=== PATIENT | male | born 1965 | race Caucasian/White ===

== ENCOUNTER 2018-07-12 12:47 | Emergency (ER) | payer OTHER, MEDICAID, SELFPAY ==
[2018-07-12 12:51] VITALS: BP 132/84; PULSE 72; RESP 14; TEMP 36.9; O2SAT 98
--- NOTE | 2018-07-12 13:04 | ED.NAVMDI ---
HPI - Nausea/Vomiting/Diarrhea General Chief complaint: Nausea/Vomiting/Diarrhea Stated complaint: fever,throwing up after surgery Time Seen by Provider: 07/12/18 13:03 Source: patient Mode of arrival: ambulatory Limitations: no limitations History of Present Illness HPI Narrative: Patient is a 53 old male who underwent a left shoulder rotator cuff repair earlier this week. Patient states that he has had pain in the left shoulder after the local nerve block wore off. He states that this morning he started to have nausea vomiting. Was unable to take his pain medication this morning. Has a burning in his epigastric area. No chest pain. No fevers. No problems breathing. Has not tried anything for this prior to arrival. Related Data Previous Rx's Medication Instructions Recorded ondansetron HCl [Zofran] 4 mg PO Q6-8H PRN #14 tab 07/12/18 Allergies Allergy/AdvReac Type Severity Reaction Status Date / Time aripiprazole [From Abilify] Allergy Unknown Verified 07/12/18 12:55 Penicillins [PENICILLINS] Allergy Unknown Verified 07/12/18 13:45 risperidone [From Risperdal] Allergy Unknown Verified 07/12/18 12:55 Review of Systems Constitutional Denies fatigue, Denies fever(s) and Denies headache(s) ENT Ears, Nose, Mouth, and Throat: Denies dizziness and Denies headache(s) Cardiovascular Denies chest pain, Denies palpitations and Denies dyspnea Respiratory Denies cough and Denies dyspnea Gastrointestinal Gastrointestinal: Reports abdominal pain, Reports constipation, Denies diarrhea, Reports nausea and Reports vomiting Genitourinary Denies dysuria Musculoskeletal Reports arthralgias (Left shoulder) Integumentary/Breasts Denies lesions and Denies rash Neurologic Denies dizziness and Denies headache(s) Endocrine Denies fatigue and Denies palpitations Hematologic/Lymphatic Denies easy bleeding and Denies easy bruising PFSH Medical History Hypertension (Acute) Surgical History S/P arthroscopy of left shoulder (Acute) Social History Smoking Status: Never smoker Exam Initial Vital Signs Initial Vital Signs: Vital Signs Temperature 98.4 F 07/12/18 12:51 Pulse Rate 72 07/12/18 12:51 Respiratory Rate 14 07/12/18 12:51 Blood Pressure 132/84 07/12/18 12:51 Pulse Oximetry 98 07/12/18 12:51 Const General: cooperative, healthy appearing, well developed, well groomed and No acute distress Orientation: alert, awake and oriented x3 HENMT Head: normal to inspection and normocephalic Resp Effort & Inspection: normal respiratory effort Auscultation: clear to auscultation bilaterally Cardio Rate: regular rate Rhythm: regular rhythm GI Inspection: non-distended Palpation: soft, No firm and No tender Skin Lesions: no lesions Rashes: no rashes Neuro General: alert, awake and oriented x3 Extrem General: capillary refill normal Other: Left arm with surgical bandages in place and a sling Psych Appearance: grossly normal and well kempt Course Orders Ordered: ED Orders 07/12/18 13:25 Complete Blood Count AUTO DIFF Stat Comprehensive Metabolic Panel Stat Lipase Stat Partial Thromboplastin Time Stat Prothrombin Time INR Stat Discontinued Medications Al Hydrox/Mg Hydrox/Simethicone 20 ml/ Lidocaine HCl 15 ml 0 ml PO NOW ONE Stop: 07/12/18 14:36 Last Admin: 07/12/18 14:57 Dose: 35 ml Sodium Chloride (Normal Saline 0.9%) 1,000 mls @ 1,000 mls/hr IV BOLUS ONE Stop: 07/12/18 14:32 Last Infusion: 07/12/18 14:53 Dose: 0 mls/hr Admin: 07/12/18 13:34 Dose: 1,000 mls/hr Sodium Chloride (Normal Saline 0.9%) 1,000 mls @ 1,000 mls/hr IV BOLUS ONE Stop: 07/12/18 16:35 Last Admin: 07/12/18 15:52 Dose: 1,000 mls/hr Metoclopramide HCl (Reglan) 10 mg IV NOW ONE Stop: 07/12/18 13:43 Last Admin: 07/12/18 13:58 Dose: 10 mg Morphine Sulfate (Morphine) 4 mg IV NOW ONE Stop: 07/12/18 13:43 Last Admin: 07/12/18 13:58 Dose: 4 mg Ondansetron HCl (Zofran) 4 mg IV NOW ONE Stop: 07/12/18 12:59 Last Admin: 07/12/18 13:28 Dose: 4 mg Ondansetron HCl (Zofran) 4 mg IV NOW ONE Stop: 07/12/18 15:37 Last Admin: 07/12/18 15:50 Dose: 4 mg Ondansetron HCl (Zofran Odt Prepack) 1 bottle MISC SEEINSTR ONE Stop: 07/12/18 16:41 Vital Signs - 8 hr 07/12/18 12:51 07/12/18 14:20 07/12/18 15:05 Temperature 98.4 F Pulse Rate 72 75 70 Respiratory Rate 14 18 16 Blood Pressure 132/84 Blood Pressure [Right Arm] 142/93 H 130/80 Pulse Oximetry 98 99 96 07/12/18 16:26 Temperature Pulse Rate Respiratory Rate 18 Blood Pressure Blood Pressure [Right Arm] 117/78 Pulse Oximetry MDM - Nausea/Vomiting/Diarrhea Lab Data Attestation: I reviewed the patient's lab results. Result diagrams: 07/12/18 13:25 07/12/18 13:25 Lab Results 07/12/18 07/12/18 07/12/18 Range/Units 13:25 13:25 13:25 WBC 11.5 H (4.5-11.0) X10^3/uL RBC 4.28 L (4.5-5.9) X10^6/uL Hgb 13.3 L (13.5-17.5) g/dL Hct 39.7 L (41-53) % MCV 92.7 (80-100) fL MCH 31.1 (26-34) PG MCHC 33.6 (30-36) % RDW 13.1 (11.6-14.8) % Plt Count 254 (150-400) X10^3/uL Neut % (Auto) 76.2 H (50-75) % Lymph % (Auto) 14.7 L (25-40) % [place] % (Auto) 7.6 (3-14) % Eos % (Auto) 1.0 L (2-4) % Baso % (Auto) 0.5 (0-2) % Neut # (Auto) 8700 H (5054-2840) /uL PT 10.9 (10.1-12.7) SECONDS INR 1.0 (0.9-1.3) APTT 25 L (26.4-36.2) SECONDS Sodium 141 (137-145) mmol/L Potassium 3.6 (3.4-5.1) mmol/L Chloride 102 (98-107) mmol/L Carbon Dioxide 27 (22-32) mmol/L BUN 13 (9-20) mg/dL Creatinine 0.80 (0.66-1.25) mg/dL Estimated GFR > 60.0 (>60) mL/min BUN/Creatinine Ratio 16.3 (6-22) Glucose 142 H (70-100) mg/dL Calcium 8.8 (8.4-10.2) mg/dL Total Bilirubin 0.3 (0.2-1.3) mg/dL AST 32 (17-59) IU/L ALT 30 (21-72) IU/L Alkaline Phosphatase 46 (38-126) U/L Total Protein 6.9 (6.3-8.2) g/dL Albumin 4.2 (3.5-5.0) g/dL Globulin 2.7 (1.7-4.1) g/dL Albumin/Globulin Ratio 1.6 (1.0-2.8) Lipase 152 (23-300) U/L MDM Narrative Medical decision making narrative: Patient reports improvement of his epigastric pain after GI cocktail. He did vomit here in the emergency department after that. He received 2 L of fluids and then was able to tolerate oral intake without vomiting. Patient also has not had a bowel movement in 3 days. We did discuss the importance of staying hydrated with small amounts of fluid over longer periods of time and also the fact that he could use [id number] laxative for his symptoms. Sent home with a prescription for nausea medication. He does not seem to have this medication after his surgery. He was given return precautions. He expressed understanding and agreement with plan. Discharge Plan Departure Patient Disposition: Home Clinical Impression: Nausea & vomiting, Acute epigastric pain Instructions: Nausea and Vomiting-Adult Activity Restrictions/Additional Instructions: Recommend you continue all of your postoperative instructions given to you by your surgeon. Continue all of your medications as directed. I do recommend you start a laxative such as MiraLax like we discussed. I also recommend that you take small amounts of liquid over longer periods of time. Use the nausea medication as needed. Return to the emergency department for any new or worsening symptoms. Call your surgeon tomorrow for a follow-up. Prescriptions: New ondansetron HCl [Zofran] 4 mg tablet 4 mg PO Q6-8H PRN (Reason: nausea and vomiting) Qty: 14 RF: 0
[2018-07-12] MEDS: ONDANSETRON 4 MG/2 ML INJ IV ×2 (13:28→15:50)
[2018-07-12] MEDS: SODIUM CHLORIDE 0.9% 1,000 ML 1000 ML IV ×2 (13:34→15:52)
[2018-07-12 13:36] LABS: Add Manual Diff / Slide Review NO; Basophils Percent Auto 0.5 % (0-2); Hematocrit 39.7 % (41-53); Hemoglobin 13.3 g/dL (13.5-17.5); Lymphocytes Percent Auto 14.7 % (25-40); Mean Corpuscular HGB Conc 33.6 % (30-36); Mean Corpuscular Hemoglobin 31.1 PG (26-34); Mean Corpuscular Volume 92.7 fL (80-100); Monocytes Percent Auto 7.6 % (3-14); Neutrophils Absolute Auto 8700 /uL (3000-5900); Neutrophils Percent Auto 76.2 % (50-75); Platelet Count 254 X10^3/uL (150-400); Red Blood Cell Count 4.28 X10^6/uL (4.5-5.9); Red Cell Distribution Width 13.1 % (11.6-14.8); White Blood Cell Count 11.5 X10^3/uL (4.5-11.0)
[2018-07-12 13:43] LABS: Prothrombin Time 10.9 SECONDS (10.1-12.7)
[2018-07-12 13:45] LABS: PTT Partial Thromboplastin Tim 25 SECONDS (26.4-36.2)
[2018-07-12 13:47] LABS: Alanine Aminotransferase 30 IU/L (21-72); Albumin 4.2 g/dL (3.5-5.0); Albumin Globulin Ratio 1.6 (1.0-2.8); Alkaline Phosphatase 46 U/L (38-126); Aspartate Aminotransferase 32 IU/L (17-59); BUN Creatinine Ratio 16.3 (6-22); Bilirubin Total 0.3 mg/dL (0.2-1.3); Blood Urea Nitrogen 13 mg/dL (9-20); Calcium 8.8 mg/dL (8.4-10.2); Carbon Dioxide 27 mmol/L (22-32); Chloride 102 mmol/L (98-107); Estimated Glomerular Filt Rate > 60.0 mL/min (>60); Globulin 2.7 g/dL (1.7-4.1); Glucose 142 mg/dL (70-100); HEMOLYSIS < 15 (0-50); Lipase 152 U/L (23-300); Potassium 3.6 mmol/L (3.4-5.1); Sodium 141 mmol/L (137-145); Total Protein 6.9 g/dL (6.3-8.2)
[2018-07-12] MEDS: MORPHINE 4 MG/ML INJ IV (13:58)
[2018-07-12] MEDS: METOCLOPRAMIDE 10 MG/2 ML INJ IV (13:58)
[2018-07-12 14:20] VITALS: BP 142/93; PULSE 75; RESP 18; O2SAT 99
[2018-07-12] MEDS: MAG HYDROX/ALUMINUM/SIMETH SUS 20 ML, LIDOCAINE VISCOUS 2% 15 ML PO (14:57)
[2018-07-12 15:05] VITALS: BP 130/80; PULSE 70; RESP 16; O2SAT 96
--- NOTE | 2018-07-12 15:08 | PC.NURSE ---
s/p left shoulder repair yesterday, woke up today with spasm pain and with nausea and vomiting. denies fever,chills. left arm with box sling, distal cms intact, left shoulder with bulky drsg, clean and dry and intact. mother at bs reports, pt was up all night , eating sandwich,icecream.
[2018-07-12 16:26] VITALS: BP 117/78; RESP 18
--- NOTE | 2018-07-12 16:27 | PC.NURSE ---
tolerating at this time.
== END 2018-07-12 17:36 | disposition home or self-care (01) ==
PROVIDERS: Emergency Provider Emergency Medicine; Family Provider Orthopaedic Surgery; PCP Family Medicine
DX: R11.2 Nausea with vomiting, unspecified (principal); R10.9 Unspecified abdominal pain
CPT/HCPCS: 36415; 36591; 80053; 83690; 85025; 85610; 85730; 96361; 96374; 96375; 96376; 99283; 99284; J2270; J2405; J2765

== ENCOUNTER 2022-01-19 13:20 | Emergency (ER) | payer OTHER, MEDICAID, SELFPAY ==
[2022-01-19 13:48] VITALS: BP 137/89; PULSE 103; RESP 22; TEMP 37; O2SAT 97; BMI 25.7
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
--- NOTE | 2022-01-19 15:15 | DI.RAD.S_ITS ---
PROCEDURE: XR FOOT LT 2V INDICATIONS: new injury old metatarsal fracture, wound on lateral mid 5th TECHNIQUE: Two views of the foot were acquired. COMPARISON: [facility], CR, XR FOOT 3+ VIEWS BILATERAL, 12/20/2021, 13:42. FINDINGS: Bones: Nonunited 5th metatarsal base fracture is redemonstrated. Degenerative changes along the medial 1st MTP joint. No new fractures or periostitis. Soft tissues: No tibiotalar joint effusion. Achilles tendon appears normal. No radiodense foreign bodies. Mild swelling around the 5th MTP joint. No soft tissue gas. IMPRESSION: 1. Mild swelling around the 5th MTP joint. 2. No change to nonunited 5th metatarsal base fracture. Dictated by: Angelica Márquez M.D. on 01/19/2022 at 16:20 Approved by: Angelica Márquez M.D. on 01/19/2022 at 16:23
[2022-01-19] MEDS: BACITRACIN OINT 0.9 GM PCKT 1 APPLIC TOP (16:37)
== END 2022-01-19 16:36 | disposition home or self-care (01) ==
PROVIDERS: Emergency Provider Nurse Practitioner Critical Care Medicine; Family Provider Orthopaedic Surgery; PCP Family Medicine
DX: S91.302A Unspecified open wound, left foot, initial encounter (principal); V09.20XA Pedestrian injured in traffic accident involving unspecified motor vehicles, initial encounter
CPT/HCPCS: 73620; 99282; 99283